=== PATIENT | male | born 1955 | race Caucasian/White ===

== ENCOUNTER 2021-07-10 08:27 | Emergency (ER) | payer OTHER ==
[~2021-07-10] VITALS: Ht 177.8 cm; Wt 102.1 kg
[2021-07-10 09:08] LABS: BASOPHILS % (AUTO) 0.9 % (0.0-5.0); HEMATOCRIT 48.7 % (42-54); LYMPHOCYTES % (AUTO) 34.6 % (21.0-51.0); MEAN CORPUSCULAR HEMOGLOBIN 29.9 pg (27.0-33.0); MEAN CORPUSCULAR HGB CONC 34.3 g/dL (32.0-36.0); MEAN CORPUSCULAR VOLUME 87.1 fL (79-99); MONOCYTES % (AUTO) 8.2 % (3.0-13.0); PLATELET COUNT (AUTO) 285 K/uL (130-400); RED BLOOD CELL COUNT(AUTO) 5.59 MIL/uL (4.50-6.20); RED CELL DISTRIBUTION WIDTH 12.5 % (11.0-15.5); WHITE BLOOD COUNT (AUTO) 7.5 K/uL (4.8-10.8)
[2021-07-10 09:22] LABS: POTASSIUM 4.1 mmol/L (3.5-5.1)
[2021-07-10 09:36] LABS: ALBUMIN 4.1 g/dL (3.5-5.0); BILIRUBIN,TOTAL 0.4 mg/dL (0.2-1.0)
[2021-07-10 11:01] LABS: APPEARANCE,URINE Clear (CLEAR); BILIRUBIN,URINE Negative (NEGATIVE); COLOR,URINE Yellow (YELLOW); GLUCOSE, URINE (UA) Negative (NEGATIVE); KETONES,URINE Negative (NEGATIVE); LEUKOCYTE ESTERASE ,URINE Trace (NEGATIVE); NITRATE,URINE Negative (NEGATIVE); OCCULT BLOOD,URINE Negative (NEGATIVE); PH,URINE 5.5 (5.0-8.0); PROTEIN,URINE Negative (NEGATIVE); UROBILINOGEN,URINE 0.2 mg/dL (0.2-1.0)
[2021-07-10 11:10] LABS: BACTERIA,URINE Rare /HPF (None Seen); RBC,URINE 0-1 /HPF (0-1); SQUAMOUS EPITHELIAL CELL,UR Rare /HPF (0-2); WBC,URINE 0-1 /HPF (0-1)
[2021-07-10] MEDS ORDERED: LORA10TA7 PO (11:23)
[2021-07-10] MEDS ORDERED: FLUT16H NASAL (11:23)
[2021-07-10 11:31] VITALS: BP 134/87
== END 2021-07-10 11:47 | disposition home or self-care (01) ==
LOC: EDH 08:27
DX: G44.209 Tension-type headache, unspecified, not intractable (principal); J32.9 Chronic sinusitis, unspecified; K05.6 Periodontal disease, unspecified; I10 Essential (primary) hypertension
CPT/HCPCS: 36415; 70450; 80053; 81001; 84484; 85025; 93005